=== PATIENT | female | born 1970 | race Caucasian/White ===

== ENCOUNTER 2020-12-30 21:21 | Emergency (ER) | payer BC, OTHER ==
[2020-12-30 21:29] VITALS: BP 120/77; PULSE 81; TEMP 98.2; BMI 23.6
== END 2020-12-31 00:55 | disposition home or self-care (01) ==
LOC: FER 21:21
DX: S09.90XA Unspecified injury of head, initial encounter (principal); S60.221A Contusion of right hand, initial encounter; S80.02XA Contusion of left knee, initial encounter; S13.9XXA Sprain of joints and ligaments of unspecified parts of neck, initial encounter
CPT/HCPCS: 72050-TC-FY; 99284-25